=== PATIENT | male | born 1995 | race Caucasian/White ===

== ENCOUNTER → 2018-01-20 | Outpatient (CLI) | payer BC ==
--- NOTE | 2018-01-20 15:43 | Diagnostic Imaging Report ---
PROCEDURE: US Gallbladder. TECHNIQUE: Multiple real-time grayscale images were obtained over the right upper quadrant in various projections. INDICATION: Right upper quadrant pain. FINDINGS: Liver is normal in size at 17.3 cm. No discrete liver mass is identified. The gallbladder is without stones or sludge. No wall thickening or pericholecystic fluid is seen. No biliary duct dilatation is identified. The right kidney is unremarkable. There is no ascites. IMPRESSION: Unremarkable gallbladder ultrasound. Dictated by: Dictated on workstation # [id number]
== END ==
LOC: RAD 13:24
PROVIDERS: ATTEND Nurse Practitioner
DX: R10.11 Right upper quadrant pain (principal)
CPT/HCPCS: 76705

== ENCOUNTER → 2019-02-02 | Outpatient (CLI) | payer BC ==
--- NOTE | 2019-02-02 10:42 | Diagnostic Imaging Report ---
PROCEDURE: MRI left joint lower extremity without contrast. TECHNIQUE: Multiplanar, multisequence non contrast-enhanced MRI of the left lower extremity was accomplished. INDICATION: Left knee injury playing soccer one week ago. COMPARISON: None FINDINGS: No acute fracture is seen in the left knee. There is moderate bone marrow edema in the posterior proximal tibia, lateral more than medial. There is also mild bone marrow edema at the lateral femoral condyle. No fracture line is seen. There is a moderate left knee joint effusion. The articular cartilage in the patellofemoral compartment appears intact. No full-thickness cartilage defects are seen in the medial or lateral compartments. There is an incomplete radial tear at the posterior horn of the lateral meniscus. Increased linear signal posterior to the medial meniscus concerning for meniscocapsular injury. There is a complete tear at the proximal anterior cruciate ligament. The posterior cruciate ligament is intact. The medial collateral ligament is intact. There is mild edema about the lateral collateral ligament proper, may represent a low-grade sprain. Otherwise the lateral ligamentous complex appears intact. The extensor mechanism demonstrates mildly increased signal at the proximal patellar tendon. Mild edema is seen in the anterolateral subcutaneous fat. No soft tissue fluid collections are seen. IMPRESSION: 1. Complete tear of the proximal anterior cruciate ligament in the left knee. 2. Radial tear at the posterior horn of the lateral meniscus. Meniscocapsular injury of the posterior medial meniscus. 3. Bone contusions of the posterior tibia and the lateral femoral condyle. No fracture line is seen. 4. Grade 1 sprain of the lateral collateral ligament proper. Dictated by: Dictated on workstation # [id number]
== END ==
LOC: RAD 08:06
PROVIDERS: ATTEND Nurse Practitioner Primary Care
DX: S83.512A Sprain of anterior cruciate ligament of left knee, initial encounter (principal); S83.282A Other tear of lateral meniscus, current injury, left knee, initial encounter; S30.1XXA Contusion of abdominal wall, initial encounter; S83.422A Sprain of lateral collateral ligament of left knee, initial encounter
CPT/HCPCS: 73721